=== PATIENT | female | born 1960 | race Caucasian/White ===

== ENCOUNTER → 2024-06-15 | Day surgery (SDC) | payer OTHER ==
[2024-06-13 13:12] LABS: CALCIUM 9.8 mg/dL (8.4-10.2); CREATININE, SERUM 0.83 mg/dL (0.57-1.11)
[~2024-06-15] MED LIST: ACETAMINOPHEN 1000 MG/100 ML 100 ML IV ONE; EPHEDRINE SULFATE INJ 50 MG/ML VIAL ONE; FENTANYL CITRATE/PF 100MCG/2 ML INJ ONE; GLIPIZIDE5 MG PO; HYDROMORPHONE 2MG/ML ONE; KETAMINE 50MG/5ML SYR ONE; LEXAPRO10 MG PO; LIDOCAINE HCL 2% LOCAL INJ 5 ML SDV VIAL INJ ONE; LISINOPRIL-HCT1 EAC2 PO; PROPOFOL IV EMULSION 10 MG/ML 20 ML VIAL ONE; ROSUVASTATIN CA20 MG PO; VESICARE5 MG PO
[2024-06-15] MEDS: CEFAZOLIN SODIUM 2 GM ONE (09:36)
[2024-06-15] MEDS: LACTATED RINGER'S 1,000 ML ONE (09:36)
[2024-06-15 12:00] VITALS: BP 164/84; PULSE 78; RESP 16; O2SAT 98
== END | disposition home or self-care (01) ==
LOC: OR 07:50
PROVIDERS: ATTEND Urology
DX: N20.1 Calculus of ureter (principal); Z46.6 Encounter for fitting and adjustment of urinary device; N81.10 Cystocele, unspecified; R35.0 Frequency of micturition; D64.9 Anemia, unspecified; E11.9 Type 2 diabetes mellitus without complications; I10 Essential (primary) hypertension; E78.5 Hyperlipidemia, unspecified; K58.9 Irritable bowel syndrome, unspecified; K57.90 Diverticulosis of intestine, part unspecified, without perforation or abscess without bleeding; F41.9 Anxiety disorder, unspecified; F32.A Depression, unspecified; Z88.6 Allergy status to analgesic agent; Z88.4 Allergy status to anesthetic agent; Z01.810 Encounter for preprocedural cardiovascular examination; Z01.812 Encounter for preprocedural laboratory examination; Z79.84 Long term (current) use of oral hypoglycemic drugs; Z79.899 Other long term (current) drug therapy
CPT/HCPCS: 36415; 52356; 74420; 80048; 87086; 88300; 93005; C1758; C2617; J0131; J1170; J2003; J2704; J3010; J7121

== ENCOUNTER → 2024-07-28 | Day surgery (SDC) | payer OTHER ==
[2024-07-27 09:15] LABS: ANION GAP 17.5 mmol/L (8-16); CALCIUM 9.3 mg/dL (8.4-10.2); CREATININE, SERUM 0.87 mg/dL (0.57-1.11); POTASSIUM 4.5 mmol/L (3.5-5.1)
[~2024-07-28] MED LIST changes: -ACETAMINOPHEN 1000 MG/100 ML 100 ML IV ONE; -EPHEDRINE SULFATE INJ 50 MG/ML VIAL ONE; -HYDROMORPHONE 2MG/ML ONE; -KETAMINE 50MG/5ML SYR ONE; +METOCLOPRAMIDE HCL 10 MG/2ML VIAL ONE; +ONDANSETRON HCL INJ 2MG/ML 2ML 2 MG/ML VIAL ONE; +PHENYLEPHRINE HCL 1% 10 MG/ML VIAL ONE
[2024-07-28] MEDS: CEFAZOLIN SODIUM 2 GM ONE (10:06)
[2024-07-28] MEDS: LACTATED RINGER'S 1,000 ML ONE (10:06)
[2024-07-28 13:01] VITALS: TEMP 97.4
[2024-07-28] MEDS: FENTANYL CITRATE/PF 100MCG/2 ML INJ ONE (13:15)
[2024-07-28 14:05] VITALS: BP 146/72; PULSE 80; RESP 18; O2SAT 97
== END | disposition home or self-care (01) ==
LOC: OR 09:37
PROVIDERS: ATTEND Urology
DX: N20.0 Calculus of kidney (principal); N13.30 Unspecified hydronephrosis; Z46.6 Encounter for fitting and adjustment of urinary device; E11.9 Type 2 diabetes mellitus without complications; I10 Essential (primary) hypertension; E78.5 Hyperlipidemia, unspecified; E66.01 Morbid (severe) obesity due to excess calories; F41.9 Anxiety disorder, unspecified; F32.A Depression, unspecified; Z88.6 Allergy status to analgesic agent; Z88.4 Allergy status to anesthetic agent; Z01.812 Encounter for preprocedural laboratory examination; Z79.84 Long term (current) use of oral hypoglycemic drugs; Z79.899 Other long term (current) drug therapy
CPT/HCPCS: 36415; 52352; 74420; 80048; 87086; 88300; C1758; J2003; J2371; J2405; J2704; J2765; J3010; J7121